=== PATIENT | female | born 1955 | race Asian ===

== ENCOUNTER 2019-03-08 08:08 | Day surgery (SDC) | payer OTHER ==
[2019-03-08] VITALS (10 sets, daily range): BP systolic 87–124; BP diastolic 45–70
[~2019-03-08] VITALS: Ht 154.9 cm; Wt 60.8 kg
[~2019-03-08 08:08] MED LIST: ProvayBlue 5mg/ml 10ml amp INJ ONE; cefOXitin Sod 1 GM in D5W 55 ML IVPB ONE
[2019-03-08] MEDS ORDERED: METFORMIN HCL1000 M1 ORAL (09:17)
[2019-03-08] MEDS ORDERED: BENAZEPRIL HCL20 MG ORAL (09:17)
[2019-03-08] MEDS ORDERED: LOVASTATIN40 MG ORAL (09:17)
[2019-03-08] MEDS ORDERED: METOPROLOL TART50 MG ORAL (09:17)
[2019-03-08] MEDS ORDERED: AMLODIPINE BESYL5 MG ORAL (09:17)
[2019-03-08] MEDS ORDERED: ASPIR 8181 MG ORAL (09:17)
[2019-03-08] MEDS ORDERED: GLIPIZIDE5 MG ORAL (09:17)
[2019-03-08] MEDS ORDERED: Midazolam 2mg/2ml Inj ONE (09:26)
[2019-03-08] MEDS ORDERED: fentaNYL 100 mcg/2 mL ONE (09:26)
[2019-03-08] MEDS ORDERED: Lidocaine 1% MPF 10mg/ml 5ml ONE (09:30)
[2019-03-08] MEDS ORDERED: Propofol 200mg/20ml IV ONE (09:30)
[2019-03-08] MEDS ORDERED: cefOXitin 1gm Inj ONE (10:00)
[2019-03-08] MEDS ORDERED: Ropivacaine 5mg/ml Vial 30ml INJ ONE (10:00)
--- NOTE | 2019-03-08 10:14 | Pre-Procedure Note/Attestation ---
Pre-Procedure Note/Attestation Complete Prior to Procedure Planned Procedure: not applicable Procedure Narrative: D&C, Hysteroscopy Indications for Procedure Pre-Operative Diagnosis: Uterine prolapse, vaginal bleeding Attestation I attest that I discussed the nature of the procedure; its benefits; risks and complications; and alternatives (and the risks and benefits of such alternatives ), prior to the procedure, with the patient (or the patient's legal sales representative printing paper). I attest that, if there was a reasonable possibility of needing a blood transfusion, the patient (or the patient's legal sales representative printing paper) was given the [facility] standardized written summary, pursuant to the Francesco [place] Blood Safety Act ([place] Health and Safety Code # 1645, as amended). I attest that I re-evaluated the patient just prior to the surgery and that there has been no change in the patient's H&P, except as documented below:NONE Josh Sam MD Mar 08, 2019 10:14
[2019-03-08] MEDS ORDERED: Sterile Water Irrig 1000ml IRRIG ONE (10:30)
[2019-03-08] MEDS ORDERED: LR 1000ml ONE (10:30)
[2019-03-08] MEDS ORDERED: LR 1000ml 1,000 ML IVLG SCH (11:08)
[2019-03-08] MEDS ORDERED: Ketorolac 30mg Inj ONE (11:08)
--- NOTE | 2019-03-08 11:08 | Anethesia Preoperative Eval ---
Anesthesia Pre-op PMH/ROS General Date of Evaluation: Mar 08, 2019 Time of Evaluation: 10:18 Anesthesiologist: Becki ASA Score: ASA 3 Mallampati Score Class I : Soft palate, uvula, fauces, pillars visible Class II: Soft palate, uvula, fauces visible Class III: Soft palate, base of uvula visible Class IV: Only hard plate visible Mallampati Classification: Class II Surgeon: Cecy Diagnosis: Uterine prolaps Surgical Procedure: D&C Hysteroscopy Anesthesia History: none Family History: no anesthesia problems Allergies: Coded Allergies: No Known Allergies (Unverified , 03/07/19) Patient NPO?: Yes Past Medical History Cardiovascular: Reports: HTN - stable on pills; Denies: CAD, [place], valve dz, arrhythmia, other Pulmonary: Denies: asthma, COPD, SHERIN, other Gastrointestinal/Genitourinary: Reports: GERD - mild; Denies: CRI, ESRD, other Neurologic/Psychiatric: Reports: depression/anxiety; Denies: dementia, CVA, TIA, other Endocrine: Reports: DM - on pills pooly controlled; Denies: hypothyroidism, steroids, other HEENT: Denies: cataract (L), cataract (R), glaucoma, [place] (L), [place] (R), other Hematology/Immune: Denies: anemia, DVT, bleeding disorder, other Musculoskeletal/Integumentary: Denies: OA, RA, DJD, DDD, edema, other PMH Narrative: as above PSxH Narrative: none Anesthesia Pre-op Phys. Exam Physician Exam Last Vital Signs Date Time Temp Pulse Resp B/P (MAP) Pulse Ox O2 Delivery O2 Flow Rate FiO2 03/08/19 08:50 Room Air 03/08/19 08:50 96.8 50 20 117/65 100 Constitutional: NAD Neurologic: CN 2-12 intact Cardiovascular: RRR, no M/R/G Respiratory: CTA Gastrointestinal: S/NT/ND Airway Exam Mallampati Score: Class II MO: full Neck: flexible ROM: full Teeth: missing Dentures: no upper, no lower Anesthesia Pre-op A/P Labs see chart Studies Pre-op Studies: EKG - NSR Risk Assessment & Plan Assessment: ASA 3 Plan: GA with LMA Status Change Before Surgery: No Pre-Antibiotics Drug: Cefoxetin 1gr. Given Within 1 Hr of Incision: Yes Time Given: 10:50 Narayan Connell MD Mar 08, 2019 11:08
[2019-03-08] MEDS ORDERED: Hydromorphone 0.5mg/0.5ml inj IVP PRN (11:15)
[2019-03-08] MEDS ORDERED: D5 1/2NS 1,000 ML IV SCH (11:30)
[2019-03-08] MEDS ORDERED: HYDROcodone/Acetamin 5/325 tab ORAL PRN (11:30)
[2019-03-08] MEDS ORDERED: Tylenol #3 tab (300mg/30mg) ORAL PRN (11:30)
[2019-03-08] MEDS ORDERED: HYDROmorphone 1mg/ml Carpuject SUBQ PRN (11:30)
--- NOTE | 2019-03-08 11:32 | Brief Operative Note ---
Immediate Post Operative Note Operative Note Pre-op Diagnosis: Uterine prolapse, vaginal bleeding Procedure: Video hysteroscopy, ECC, EMC Post-op Diagnosis: Same Post-op Diagnosis: same as pre-op Findings: consistent w/pre-op dx studies Surgeon: Josh Sam MD Anesthesiologist: Harinder Connell MD Anesthesia: general Specimen: yes - ECC, EMC Complications: none Condition: stable Fluids: LR Estimated Blood Loss: none Drains: none Implant(s) used?: No Josh Sam MD Mar 08, 2019 11:32
--- NOTE | 2019-03-08 11:34 | Immediate Post-Op Evaluation ---
Immediate Post-Op Evalulation Immediate Post-Op Evalulation Procedure: D&C Hysteroscopy Date of Evaluation: Mar 08, 2019 Time of Evaluation: 11:33 IV Fluids: 1000 Blood Products: none Estimated Blood Loss: min Urinary Output: 200 Blood Pressure Systolic: 104 Blood Pressure Diastolic: 56 Pulse Rate: 48 Respiratory Rate: 20 O2 Sat by Pulse Oximetry: 99 Temperature (Fahrenheit): 97.6 Pain Score (1-10): 1 Nausea: No Vomiting: No Complications none Patient Status: reacts, patent, none Hydration Status: adequate Narayan Connell MD Mar 08, 2019 11:34
--- NOTE | 2019-03-08 16:30 | Operative Note - Dictated ---
DATE OF OPERATION: 03/08/2019 PREOPERATIVE DIAGNOSES: Menorrhagia and pelvic prolapse. POSTOPERATIVE DIAGNOSES: Menorrhagia and pelvic prolapse. PROCEDURES PERFORMED: Video hysteroscopy, dilatation and curettage, endocervical curettage, and endometrial curettage. SURGEON: Josh Sam M.D. COOKEE: No investment sales assistant. ANESTHESIA: General. ANESTHESIOLOGIST: Narayan Connell M.D. PROCEDURE IN DETAIL: After all the appropriate consents were signed, the patient was brought to the operating room and placed on the table in supine position. General anesthesia was induced without complication. The patient was then placed in a dorsal lithotomy position. Perineum, vagina, and abdomen were prepped and draped in the usual fashion for the procedure. The patient was then examined under anesthesia. Uterus appeared to be severely prolapsing with both cystocele and enterocele visible. The cervix was now grasped and dilated using Hegar dilators to Hegar #7. The procedure then continued with video hysteroscope where uterine cavity was well visualized. Both tubal ostia could be identified and there did not appear to be any submucosal fibroids or polypoid lesions. The endometrium appeared to be quite dry. At this time, endocervical curettage was performed followed by endometrial curettage. Both specimens submitted to pathology for evaluation. At this time, instruments were removed from the vagina and the cervical os was once again visualized and found to be hemostatic. The patient was placed in the supine position, awakened from general anesthesia, and brought to the recovery room in excellent condition. Josh Sam M.D. DR: EV JOB#: [id number] CC:
[2019-03-12 09:01] VITALS: BP 128/72
--- NOTE | 2019-03-12 09:01 | 48 Hour Post Anesthesia Eval ---
Post Anesthesia Evaluation Procedure: D&C Hysteroscopy Date of Evaluation: Mar 08, 2019 Time of Evaluation: 12:30 Blood Pressure Systolic: 128 0: 72 Pulse Rate: 68 Respiratory Rate: 20 Temperature (Fahrenheit): 97.6 O2 Sat by Pulse Oximetry: 98 Airway: patent Nausea: No Vomiting: No Pain Intensity: 1 Hydration Status: adequate Cardiopulmonary Status: stable Mental Status/LOC: patient returned to baseline Follow-up Care/Observations: n/a Post-Anesthesia Complications: none Follow-up care needed: ready to discharge Narayan Connell MD Mar 12, 2019 09:01
== END 2019-03-08 13:40 | disposition home or self-care (01) ==
LOC: SUR 08:08
DX: N92.0 Excessive and frequent menstruation with regular cycle (principal); N81.89 Other female genital prolapse; I10 Essential (primary) hypertension; K21.9 Gastro-esophageal reflux disease without esophagitis; F32.9 Major depressive disorder, single episode, unspecified; F41.9 Anxiety disorder, unspecified; E11.9 Type 2 diabetes mellitus without complications
CPT/HCPCS: 58558; 82962; J0694; J1885; J2250; J2704; J3010; 94003; 94150

== ENCOUNTER 2019-05-08 05:42 | Inpatient (IN) | payer OTHER ==
--- NOTE | 2019-05-01 13:32 | NUR ---
*-* CASE MANAGEMENT NOTES *-* Please review information for upcoming case Hortencia Rodriguez DOS 05/08/19 CERT # [id number] 1DAY LOS CPT [id number] Laparoscopy, surgical, with vaginal hysterectomy MADONNA VIDAL NO PHONE # FX# [phone] PER BABATUNDE Robledo [phone] PACHECO'S OFFICE OBTAINING AUTH FOR VAGINAL SLING PROCEDURE. WILL UPDATE ONCE APPROVED
[~2019-05-08] VITALS: Ht 154.9 cm; Wt 61.2 kg
[~2019-05-08 05:42] MED LIST changes: +AMLODIPINE BESYL5 MG ORAL; +ASPIR 8181 MG ORAL; +BENAZEPRIL HCL20 MG ORAL; +GLIPIZIDE5 MG ORAL; +LOVASTATIN40 MG ORAL; +METFORMIN HCL1000 M1 ORAL; +METOPROLOL TART50 MG ORAL; -ProvayBlue 5mg/ml 10ml amp INJ ONE; -cefOXitin Sod 1 GM in D5W 55 ML IVPB ONE
[2019-05-08 06:39] VITALS: BP 118/78
[2019-05-08] MEDS ORDERED: LR 1000ml 1,000 ML IVLG SCH (06:50)
--- NOTE | 2019-05-08 06:55 | Anethesia Preoperative Eval ---
Anesthesia Pre-op PMH/ROS General Date of Evaluation: May 08, 2019 Anesthesiologist: Aaliyah ASA Score: ASA 3 Mallampati Score Class I : Soft palate, uvula, fauces, pillars visible Class II: Soft palate, uvula, fauces visible Class III: Soft palate, base of uvula visible Class IV: Only hard plate visible Mallampati Classification: Class II Surgeon: Cecy Diagnosis: Uterine Prolapse Surgical Procedure: Vaginal Hysterectomy Anesthesia History: none Family History: no anesthesia problems Allergies: Coded Allergies: No Known Allergies (Unverified , 03/07/19) Medications: see eMAR Patient NPO?: Yes NPO Date: May 07, 2019 NPO Time: 2340 Past Medical History Cardiovascular: Reports: HTN, other - HL Endocrine: Reports: DM Anesthesia Pre-op Phys. Exam Physician Exam Last Vital Signs Date Time Temp Pulse Resp B/P (MAP) Pulse Ox O2 Delivery O2 Flow Rate FiO2 05/08/19 06:49 Room Air 05/08/19 06:39 96.7 54 18 118/78 (91) 99 Constitutional: NAD Neurologic: CN 2-12 intact Cardiovascular: RRR Respiratory: CTA Gastrointestinal: S/NT/ND Airway Exam Mallampati Score: Class II MO: full ROM: limited Teeth: missing Dentures: upper, lower Anesthesia Pre-op A/P Risk Assessment & Plan Assessment: ASA 3 Plan: GA, SED, GlideScope Go Status Change Before Surgery: No Pre-Antibiotics Dru Grams Ancef IV Given Within 1 Hr of Incision: Yes Isai Fischer MD May 08, 2019 06:55
[2019-05-08] MEDS ORDERED: LORazepam Inj 2mg/ml 1ml IV PRN (07:00)
[2019-05-08] MEDS ORDERED: DiphenhydrAMINE 50mg/ml Inj IVP PRN (07:00)
[2019-05-08] MEDS ORDERED: Hydromorphone 0.5mg/0.5ml inj IVP PRN (07:00)
[2019-05-08] MEDS ORDERED: Ketorolac 30mg Inj IV PRN ×2 (07:00)
[2019-05-08] MEDS ORDERED: Metoclopramide 10mg/2ml Inj IVP PRN (07:00)
[2019-05-08] MEDS ORDERED: fentaNYL 100 mcg/2 mL IV PRN (07:00)
[2019-05-08] MEDS ORDERED: oxyCODONE HCL/Acetaminophen 5/325mg ORAL PRN (07:00)
[2019-05-08] MEDS ORDERED: cefOXitin Sod 2 GM in D5W 110 ML IVPB ONE (07:00)
[2019-05-08] MEDS ORDERED: Labetalol 5mg/ml 20ml vial IV PRN (07:00)
[2019-05-08] MEDS ORDERED: HYDROcodone/Acetamin 5/325 tab ORAL PRN (07:00)
[2019-05-08] MEDS ORDERED: Meperidine 50mg/ml Inj(FOR RIGORS ONLY) IVP PRN (07:00)
[2019-05-08] MEDS ORDERED: Atropine Sulfate 0.4mg/ml inj IVP PRN (07:00)
[2019-05-08] MEDS ORDERED: HYDROcodone/Acetamin 7.5/325 tab ORAL PRN (07:00)
[2019-05-08] MEDS ORDERED: Acetaminophen (Non formulary) 100 ML IV ONE (07:00)
[2019-05-08] MEDS ORDERED: Midazolam 2mg/2ml Inj IVP PRN (07:00)
[2019-05-08] MEDS ORDERED: Lidocaine 1% Plain 30 ml INJ ONE (07:01)
[2019-05-08] MEDS ORDERED: Sodium Chloride 10ml vial INJ ONE (07:01)
[2019-05-08] MEDS ORDERED: Lidocaine 1% MPF 10mg/ml 5ml ONE (07:01)
[2019-05-08] MEDS ORDERED: fentaNYL 100 mcg/2 mL IV ONE (07:01)
[2019-05-08] MEDS ORDERED: Ketamine 500mg/10ml vial ONE (07:02)
[2019-05-08] MEDS ORDERED: Rocuronium Bromide 50mg/5ml Inj IV ONE (07:11)
[2019-05-08] MEDS ORDERED: Ropivacaine 5mg/ml Vial 30ml INJ ONE (07:27)
[2019-05-08] MEDS ORDERED: ProvayBlue 5mg/ml 10ml amp INJ ONE (07:30)
[2019-05-17] MEDS ORDERED: cefOXitin Sod 2 GM in D5W 110 ML IVPB ONE (07:00)
[2019-07-03] VITALS (21 sets, daily range): BP systolic 84–109; BP diastolic 39–63
[2019-07-03] MEDS ORDERED: cefOXitin Sod 2 GM in D5W 110 ML IVPB ONE (07:00)
[2019-07-03] MEDS ORDERED: Midazolam 2mg/2ml Inj ONE (07:06)
[2019-07-03] MEDS ORDERED: fentaNYL 100 mcg/2 mL IV ONE (07:06)
[2019-07-03] MEDS ORDERED: Propofol 200mg/20ml IV ONE (07:08)
[2019-07-03] MEDS ORDERED: Lidocaine 1% MPF 10mg/ml 5ml ONE (07:08)
[2019-07-03] MEDS ORDERED: Rocuronium Bromide 50mg/5ml Inj IV ONE (07:15)
[2019-07-03] MEDS ORDERED: cefOXitin 1gm Inj ONE (07:15)
[2019-07-03] MEDS ORDERED: Succinylcholine 20mg/ml 10ml vial ONE (07:15)
[2019-07-03] MEDS ORDERED: Ropivacaine 5mg/ml Vial 20ml INJ ONE (07:16)
[2019-07-03] MEDS ORDERED: Bacitracin 50000 Units Vial ONE (07:17)
[2019-07-03] MEDS ORDERED: NeoSporin Gu Irrig 1ml Amp IRRIG ONE (07:17)
[2019-07-03] MEDS ORDERED: LR 1000ml ONE (07:30)
[2019-07-03] MEDS ORDERED: Sterile Water Irrig 2000ml IRRIG ONE ×2 (07:30→11:13)
[2019-07-03] MEDS ORDERED: ProvayBlue 5mg/ml 10ml amp INJ ONE (07:30)
[2019-07-03] MEDS ORDERED: Neostigmine 1mg/ml 10ml Inj ONE ×2 (07:30→09:07)
[2019-07-03] MEDS ORDERED: NS Irrig 1000ml ONE (07:30)
[2019-07-03] MEDS ORDERED: Sterile Water Irrig 1000ml IRRIG ONE (07:30)
--- NOTE | 2019-07-03 07:37 | Pre-Procedure Note/Attestation ---
Pre-Procedure Note/Attestation Complete Prior to Procedure Planned Procedure: bilateral Procedure Narrative: Laparoscopically assisted hysterectomy, bilateral salpingo-oophorectomy Indications for Procedure Pre-Operative Diagnosis: Pelvic Prolapse Attestation I attest that I discussed the nature of the procedure; its benefits; risks and complications; and alternatives (and the risks and benefits of such alternatives ), prior to the procedure, with the patient (or the patient's legal safety representative). I attest that, if there was a reasonable possibility of needing a blood transfusion, the patient (or the patient's legal safety representative) was given the [facility] Services standardized written summary, pursuant to the Francesco Driscoll Blood Safety Act ([place] Health and Safety Code # 1645, as amended). I attest that I re-evaluated the patient just prior to the surgery and that there has been no change in the patient's H&P, except as documented below: Josh Sam MD Jul 03, 2019 07:37
--- NOTE | 2019-07-03 07:44 | Anethesia Preoperative Eval ---
Anesthesia Pre-op PMH/ROS General Date of Evaluation: Jul 03, 2019 Time of Evaluation: 07:42 Anesthesiologist: Becki ASA Score: ASA 2 Mallampati Score Class I : Soft palate, uvula, fauces, pillars visible Class II: Soft palate, uvula, fauces visible Class III: Soft palate, base of uvula visible Class IV: Only hard plate visible Mallampati Classification: Class II Surgeon: Cecy Diagnosis: Pelvic prolaps Surgical Procedure: Vaginal hysterectomy Anesthesia History: none Family History: no anesthesia problems Allergies: Coded Allergies: No Known Allergies (Unverified , 03/07/19) Medications: see eMAR Patient NPO?: Yes NPO Date: Jul 03, 2019 NPO Time: 2300 Past Medical History Cardiovascular: Reports: HTN - stable on meds; Denies: CAD, [place], valve dz, arrhythmia, other Pulmonary: Denies: asthma, COPD, SHERIN, other Gastrointestinal/Genitourinary: Reports: GERD; Denies: CRI, ESRD, other Neurologic/Psychiatric: Reports: depression/anxiety; Denies: dementia, CVA, TIA, other Endocrine: Reports: DM - on pills; Denies: hypothyroidism, steroids, other HEENT: Denies: cataract (L), cataract (R), glaucoma, [place] (L), [place] (R), other Hematology/Immune: Denies: anemia, DVT, bleeding disorder, other Musculoskeletal/Integumentary: Denies: OA, RA, DJD, DDD, edema, other PMH Narrative: as above PSxH Narrative: None Anesthesia Pre-op Phys. Exam Physician Exam Last Vital Signs Date Time Temp Pulse Resp B/P (MAP) Pulse Ox O2 Delivery O2 Flow Rate FiO2 07/03/19 06:40 Room Air 07/03/19 06:36 97.2 56 18 105/63 (77) 99 Constitutional: NAD Neurologic: CN 2-12 intact Cardiovascular: RRR, no M/R/G Respiratory: CTA Gastrointestinal: S/NT/ND Airway Exam Mallampati Score: Class II MO: full Neck: flexible Teeth: missing Dentures: upper, lower Narayan Connell MD Jul 03, 2019 07:44
--- NOTE | 2019-07-03 07:44 | Pre-Procedure Note/Attestation ---
Pre-Procedure Note/Attestation Complete Prior to Procedure Planned Procedure: not applicable Procedure Narrative: cystocele repair vaginal sling rectocele repair colposuspension cystoscopy Indications for Procedure Pre-Operative Diagnosis: vaginal prolapse Attestation I attest that I discussed the nature of the procedure; its benefits; risks and complications; and alternatives (and the risks and benefits of such alternatives ), prior to the procedure, with the patient (or the patient's legal administrative representative). I attest that, if there was a reasonable possibility of needing a blood transfusion, the patient (or the patient's legal administrative representative) was given the [facility] standardized written summary, pursuant to the Francesco [place] Blood Safety Act ([place] Health and Safety Code # 1645, as amended). I attest that I re-evaluated the patient just prior to the surgery and that there has been no change in the patient's H&P, except as documented below: Jean Hsu MD Jul 03, 2019 07:44
[2019-07-03] MEDS ORDERED: Sodium Chloride 10ml vial INJ ONE ×2 (08:25→09:07)
[2019-07-03] MEDS ORDERED: ePHEDrine 50mg/ml Inj ONE (08:25)
[2019-07-03] MEDS ORDERED: LR 1000ml 1,000 ML IVLG SCH (08:47)
[2019-07-03] MEDS ORDERED: Hydromorphone 0.5mg/0.5ml inj IVP PRN ×2 (09:00→12:45)
[2019-07-03] MEDS ORDERED: Acetaminophen (Non formulary) 100 ML IV ONE (09:00)
[2019-07-03] MEDS ORDERED: Ketorolac 30mg Inj IV PRN (09:00)
[2019-07-03] MEDS ORDERED: DiphenhydrAMINE 50mg/ml Inj IVP PRN (09:00)
[2019-07-03] MEDS ORDERED: Metoclopramide 10mg/2ml Inj IVP PRN (09:00)
[2019-07-03] MEDS ORDERED: Glycopyrrolate 0.2mg/ml 1ml Vial ONE (09:07)
[2019-07-03] MEDS ORDERED: Morphine Sulfate 10mg/ml Inj ONE (09:07)
[2019-07-03] MEDS ORDERED: Ketorolac 30mg Inj ONE (09:08)
[2019-07-03] MEDS ORDERED: NS Irrig 1000ml IRRIG ONE (09:31)
--- NOTE | 2019-07-03 09:54 | Brief Operative Note ---
Immediate Post Operative Note Operative Note Pre-op Diagnosis: vaginal prolapse Procedure: cystocele and rectocele repair colposuspesion vaginal sling cystoscopy Post-op Diagnosis: same Post-op Diagnosis: same as pre-op Surgeon: Devin Hsu Anesthesia: general Specimen: none Complications: none Condition: stable Fluids: 1000 Estimated Blood Loss: minimal Drains: none Implant(s) used?: No Jean Hsu MD Jul 03, 2019 09:54
[2019-07-03] MEDS ORDERED: Lidocaine 1% 10mg/ml/EPI 0.01mg/ml 50ml INJ ONE (10:29)
--- NOTE | 2019-07-03 10:52 | Brief Operative Note ---
Immediate Post Operative Note Operative Note Pre-op Diagnosis: Pelvic Prolapse Procedure: Laparoscopically Assisted Hysterectomy, Bilateral Salpingo-oophorectomy, lysis of pelvic adhesions, enterolysis Post-op Diagnosis: same as pre-op Findings: consistent w/pre-op dx studies Surgeon: Josh Sam Bullet Maker: Melanie Long Anesthesiologist: Mary Connell Anesthesia: general Specimen: yes - Uterus, Cervix, Bilateral Ovaries and tubes Complications: none Condition: stable Fluids: LR @100 ml/hr Estimated Blood Loss: minimal Drains: none Packing: NONE Implant(s) used?: No Josh Sam MD Jul 03, 2019 10:52
[2019-07-03] MEDS ORDERED: ProvayBlue 5mg/ml 10ml amp IVP ONE (11:01)
--- NOTE | 2019-07-03 11:55 | Immediate Post-Op Evaluation ---
Immediate Post-Op Evalulation Immediate Post-Op Evalulation Procedure: Lap assysted vaginal hysterectomy, recto and cystocele repair Date of Evaluation: Jul 03, 2019 Time of Evaluation: 11:54 IV Fluids: 1700 Blood Products: none Estimated Blood Loss: 150 Urinary Output: 250 Blood Pressure Systolic: 104 Blood Pressure Diastolic: 56 Pulse Rate: 72 Respiratory Rate: 20 O2 Sat by Pulse Oximetry: 99 Temperature (Fahrenheit): 97.8 Pain Score (1-10): 1 Nausea: No Vomiting: No Complications none Patient Status: reacts, patent, extubated, none Hydration Status: adequate Narayan Connell MD Jul 03, 2019 11:55
[2019-07-03] MEDS ORDERED: Insulin Human Regular 100units/ml 3ml ONE (12:31)
[2019-07-03] MEDS ORDERED: Insulin Human Regular 100units/ml 3ml SUBQ SCH (12:35)
--- NOTE | 2019-07-03 14:21 | NUR ---
CASE MANAGEMENT:REVIEW 64 YR OLD FEMALE HERE FOR ELECTIVE SURGERY SI: VAGINAL PROLAPSE 96.7 54 18 118/78 99% ON RA IS: TO SURGERY: CYSTOCELE & RECTOCELE REPAIR : TO MED/SURG [facility]
[2019-07-03 14:31] LABS: HEMATOCRIT 31.4 % (37.0-47.0); HEMOGLOBIN 10.5 G/DL (12.0-16.0); MEAN CORPUSCULAR VOLUME 80 FL (80-99); PLATELET COUNT 312 K/UL (150-450); RED BLOOD COUNT 3.91 M/UL (4.20-5.40); RED CELL DISTRIBUTION WIDTH 11.7 % (11.6-14.8); WHITE BLOOD COUNT 14.8 K/UL (4.8-10.8)
--- NOTE | 2019-07-03 15:55 | NUR ---
NURSE NOTES: pt admitted in stable condition. pt is bleeding normal checked vaginal pad. surgical site is intact. Pt on director of analytics no signs of cardiac or respiratory distress at this time. will continue to monitor V/s. B/P is currently 107/58 it is improving HR 62 and reports no pain. Bed in lowest position and locked. Call light within reach instructed pt on how to use it.
--- NOTE | 2019-07-03 16:12 | NUR ---
NURSE NOTES: Called md Sam for admitting orders, got report from OR nurse, gave pt to nurse Karena
[2019-07-03] MEDS: NovoLOG Insulin Flexpen SUBQ SCH ×2 (17:15→21:00)
--- NOTE | 2019-07-03 17:36 | General Progress Note ---
Assessment/Plan Assessment/Plan: Laparoscopically Assisted Hysterectomy, Bilateral Salpingo-oophorectomy, lysis of pelvic adhesions, enterolysis diabetes hypertension PLAN 1. incentive spirometry 2. SCD 3. resume home meds 4. Hydration 5. Pain management 6. discharge once stable with outpatient follow up Subjective Allergies: Coded Allergies: No Known Allergies (Unverified , 03/07/19) Subjective asked to follow post op Objective Last 24 Hour Vital Signs Date Time Temp Pulse Resp B/P (MAP) Pulse Ox O2 Delivery O2 Flow Rate FiO2 07/03/19 15:25 98.4 60 16 96/47 99 Nasal Cannula 3 07/03/19 15:10 61 15 90/45 99 Nasal Cannula 3 07/03/19 14:55 61 15 87/44 100 Nasal Cannula 3 07/03/19 14:40 60 15 88/42 100 Nasal Cannula 3 07/03/19 14:25 60 22 92/43 99 Nasal Cannula 3 07/03/19 14:10 60 15 92/50 100 Nasal Cannula 3 07/03/19 13:55 98.4 61 20 84/39 100 Nasal Cannula 3 07/03/19 13:40 60 14 91/45 100 Nasal Cannula 3 07/03/19 13:30 62 15 90/44 100 Nasal Cannula 3 07/03/19 13:20 61 15 92/43 100 Nasal Cannula 3 07/03/19 13:05 61 16 92/44 99 Nasal Cannula 3 07/03/19 12:50 60 15 93/50 99 Nasal Cannula 3 07/03/19 12:40 57 17 100/50 99 Nasal Cannula 3 07/03/19 12:30 60 20 105/49 99 Nasal Cannula 3 07/03/19 12:15 64 16 109/51 100 Simple Mask 6 07/03/19 12:05 63 19 103/49 100 Simple Mask 6 07/03/19 11:55 67 17 105/55 100 Simple Mask 6 07/03/19 11:55 72 20 99 07/03/19 11:50 73 18 95/53 100 Simple Mask 6 07/03/19 11:47 97.8 76 24 100/47 100 Simple Mask 6 07/03/19 06:40 Room Air 07/03/19 06:36 97.2 56 18 105/63 (77) 99 Intake and Output 07/02/19 07/03/19 19:00 07:00 # Voids 1 Laboratory Tests 07/03/19 14:15: White Blood Count 14.8H, Red Blood Count 3.91L, Hemoglobin 10.5L, Hematocrit 31.4L, Mean Corpuscular Volume 80, Mean Corpuscular Hemoglobin 26.7L, Mean Corpuscular Hemoglobin Concent 33.3, Red Cell Distribution Width 11.7, Platelet Count 312, Mean Platelet Volume 5.9L, Neutrophils (%) (Auto) , Lymphocytes (%) ( Auto) , Monocytes (%) (Auto) , Eosinophils (%) (Auto) , Basophils (%) (Auto) , Differential Total Cells Counted 100, Neutrophils % (Manual) 89H, Lymphocytes % (Manual) 8L, Monocytes % (Manual) 3, Eosinophils % (Manual) 0, Basophils % ( Manual) 0, Band Neutrophils 0, Platelet Estimate Adequate, Platelet Morphology Normal, Hypochromasia 1+ Height (Feet): 5 Height (Inches): 1.00 Weight (Pounds): 135 Objective WDWN NAD clear breath sounds bilaterally without rhonchi or wheeze [id number] without MRG NABS nontender no HSM no CCE nonfocal Jeff Sam MD Jul 03, 2019 17:36
[2019-07-03] MEDS: LR 1000ml 1,000 ML IV SCH (18:54)
--- NOTE | 2019-07-03 20:55 | NUR ---
HAND-OFF: Report given to Pastor/RN, pt in stable condition. Endorsed to RN that pad needs to be removed in the morning but follow is to stay until doctor's orders to DC.
--- NOTE | 2019-07-03 20:56 | NUR ---
NURSE NOTES: Got report from Karena NUNO. Pt in stable condition. Denies any pain. No s/s of distress or discomfort noted. Pt resting in bed comfortably. Bed in low and locked position, call light within reach, bedside table within reach. Continue to monitor.
[2019-07-03] MEDS: Metoprolol Tartrate 50mg tab ORAL SCH (21:00)
[2019-07-03] MEDS: ceFAZolin 1gm/50ml Premix 50 ML IV SCH (22:20)
[2019-07-04] VITALS: BP 99/55
[2019-07-04] MEDS: LR 1000ml 1,000 ML IV SCH ×3 (02:43→23:04)
[2019-07-04 04:00] VITALS: BP 126/74
[2019-07-04] MEDS ORDERED: Ketorolac 30mg Inj IM PRN ×2 (06:00→12:36)
--- NOTE | 2019-07-04 06:00 | NUR ---
NURSE NOTES: Vaginal packing removed. Pt in stable condition. Continue to monitor.
[2019-07-04] MEDS: ceFAZolin 1gm/50ml Premix 50 ML IV SCH ×3 (06:12→21:49)
[2019-07-04] MEDS: GlipiZIDE 5mg tab ORAL SCH ×2 (06:12→11:38)
[2019-07-04] MEDS: NovoLOG Insulin Flexpen SUBQ SCH ×4 (06:25→21:00)
--- NOTE | 2019-07-04 07:45 | NUR ---
HAND-OFF: Report given to Aleksandar NUNO.
--- NOTE | 2019-07-04 07:50 | NUR ---
NURSE NOTES: Received report from YAAKOV Xavier. Patient sleeping in supine position, resting comfortably, oxygen at 2 liters nasal cannula, no signs or symptoms of pain, bed in lowest position, call light within reach, in no apparent distress.
[2019-07-04 08:00] VITALS: BP 106/55
[2019-07-04] MEDS ORDERED: Aspirin EC 81mg tab ORAL SCH (09:00)
[2019-07-04] MEDS: Metoprolol Tartrate 50mg tab ORAL SCH ×2 (09:00→21:49)
[2019-07-04 11:30] LABS: ANION GAP 8 mmol/L (5-15); BLOOD UREA NITROGEN 6 mg/dL (7-18); CALCIUM 8.1 MG/DL (8.5-10.1); CARBON DIOXIDE 26 MMOL/L (21-32); CHLORIDE 107 MMOL/L (98-107); CREATININE 0.7 MG/DL (0.55-1.30); POTASSIUM 3.8 MMOL/L (3.5-5.1); SODIUM 141 MMOL/L (136-145)
[2019-07-04 12:00] VITALS: BP 127/75
[2019-07-04] MEDS ORDERED: Hydromorphone 0.5mg/0.5ml inj IVP PRN (12:35)
--- NOTE | 2019-07-04 12:41 | NUR ---
TRANSFER TO FLOOR: Patient transferred to [facility], per MD. Report given to YAAKOV Whatley. Belongings and medications given to YAAKOV Rea. Family and or S/O informed of transfer by patient.
--- NOTE | 2019-07-04 13:49 | NUR ---
CASE MANAGEMENT:REVIEW 07/04/19 SI: POD #1 S/P CYSTOCELE & RECTOCELE REPAIR 98.1 75 18 127/75 96% ON RA IS: IV ANCEF Q8HRS IV LR @ 100/HR NORVASC PO QD ASA PO QD GLIPIZIDE PO BID LOPRESSOR PO Q12 TORADOL IM Q6HRS PRN : MED/SURG [facility]
--- NOTE | 2019-07-04 14:06 | 48 Hour Post Anesthesia Eval ---
Post Anesthesia Evaluation Procedure: Lap assysted vaginal hysterectomy, recto and cystocele repair Date of Evaluation: Jul 04, 2019 Time of Evaluation: 14:05 Blood Pressure Systolic: 124 0: 72 Pulse Rate: 68 Respiratory Rate: 58 Temperature (Fahrenheit): 97.6 O2 Sat by Pulse Oximetry: 98 Airway: patent Nausea: No Vomiting: No Pain Intensity: 1 Hydration Status: adequate Cardiopulmonary Status: stable Mental Status/LOC: patient returned to baseline Follow-up Care/Observations: n/a Post-Anesthesia Complications: none Follow-up care needed: N/A Narayan Connell MD Jul 04, 2019 14:06
[2019-07-04 16:00] VITALS: BP 122/62
--- NOTE | 2019-07-04 16:16 | General Progress Note ---
Assessment/Plan Assessment/Plan: Laparoscopically Assisted Hysterectomy, Bilateral Salpingo-oophorectomy, lysis of pelvic adhesions, enterolysis diabetes hypertension PLAN 1. incentive spirometry 2. SCD 3. maintain home meds 4. Hydration 5. Pain management 6. discharge once stable with outpatient follow up Subjective Allergies: Coded Allergies: No Known Allergies (Unverified , 03/07/19) Subjective sable post op care noted Objective Last 24 Hour Vital Signs Date Time Temp Pulse Resp B/P (MAP) Pulse Ox O2 Delivery O2 Flow Rate FiO2 07/04/19 14:06 68 58 98 07/04/19 12:00 98.1 75 18 127/75 (92) 96 07/04/19 09:00 65 106/55 07/04/19 09:00 65 106/55 07/04/19 09:00 Room Air 07/04/19 08:00 61 07/04/19 08:00 98.1 65 18 106/55 (72) 98 07/04/19 07:06 98.2 07/04/19 04:00 98.2 66 16 126/74 (91) 97 07/04/19 04:00 2.0 07/04/19 04:00 58 07/04/19 01:09 Nasal Cannula 2.0 07/04/19 01:00 Nasal Cannula 2.0 07/04/19 00:00 98.6 60 16 99/55 (70) 98 07/04/19 00:00 55 07/03/19 21:00 61 96/54 07/03/19 21:00 Nasal Cannula 2.0 07/03/19 20:00 52 07/03/19 20:00 2.0 07/03/19 20:00 98.1 61 16 96/54 (68) 96 07/03/19 19:56 Nasal Cannula 2.0 Intake and Output 07/03/19 07/04/19 19:00 07:00 Intake Total 3700 ml 50 ml Output Total 520 ml Balance 3180 ml 50 ml Intake IV Total 3700 ml 50 ml Output Urine Total 370 ml Estimated Blood Loss 150 ml # Voids 1 Laboratory Tests 07/04/19 10:30: Sodium Level 141, Potassium Level 3.8, Chloride Level 107, Carbon Dioxide Level 26, Anion Gap 8, Blood Urea Nitrogen 6L, Creatinine 0.7, Estimat Glomerular Filtration Rate > 60, Glucose Level 191H, Calcium Level 8.1L Height (Feet): 5 Height (Inches): 1.00 Weight (Pounds): 135 Objective WDWN NAD clear breath sounds bilaterally without rhonchi or wheeze [id number] without MRG NABS nontender no HSM no CCE nonfocal Jeff Sam MD Jul 04, 2019 16:16
[2019-07-04] MEDS ORDERED: metFORMIN 500mg tab ORAL SCH (18:00)
[2019-07-04] MEDS: metFORMIN 500mg tab ORAL SCH (18:16)
[2019-07-04 20:00] VITALS: BP 115/63
--- NOTE | 2019-07-04 20:00 | NUR ---
NURSE NOTES: Patient AOx4. Son at bedside. No complaints of pain at this time. No s/s distress noted. Three abdominal surgical sites noted, dry and intact. Andrade in place, draining yellow urine by gravity. Bed in lowest position, call light within reach, will continue to monitor.
[2019-07-05 00:57] VITALS: BP 127/62
[2019-07-05 04:22] VITALS: BP 135/65
[2019-07-05] MEDS: GlipiZIDE 5mg tab ORAL SCH ×2 (06:07→11:35)
[2019-07-05] MEDS: ceFAZolin 1gm/50ml Premix 50 ML IV SCH ×2 (06:07→14:14)
[2019-07-05] MEDS: NovoLOG Insulin Flexpen SUBQ SCH ×3 (06:15→16:30)
--- NOTE | 2019-07-05 07:13 | NUR ---
HAND-OFF: Report given to NOAH WARD RN.
--- NOTE | 2019-07-05 07:30 | NUR ---
NURSE NOTES: Received report from Marah NUNO. Patient is awake and oriented, no acute distress noted, reporting no pain at this time, surgical site clean and dry. Andrade to gravity drainage. IVF running per order. Patient updated on plan of care for the day. Side rails upx2, bed low and locked, call light within reach.
[2019-07-05 08:00] VITALS: BP 125/63
--- NOTE | 2019-07-05 08:32 | General Progress Note ---
Assessment/Plan Assessment/Plan: Laparoscopically Assisted Hysterectomy, Bilateral Salpingo-oophorectomy, lysis of pelvic adhesions, enterolysis diabetes hypertension post op fevers PLAN 1. incentive spirometry 2. SCD 3. maintain home meds 4. Hydration 5. Pain management 6. discharge per material assembler impression, plan, and exam edited and reviewed in detail care discussed with RN Subjective Allergies: Coded Allergies: No Known Allergies (Unverified , 03/07/19) Subjective sable post op care noted low grade fevers Objective Last 24 Hour Vital Signs Date Time Temp Pulse Resp B/P (MAP) Pulse Ox O2 Delivery O2 Flow Rate FiO2 07/05/19 04:23 97.3 07/05/19 04:22 62 18 135/65 (88) 97 07/05/19 01:09 100.3 07/05/19 00:57 67 18 127/62 (83) 98 07/04/19 22:19 Room Air 07/04/19 21:49 74 115/63 07/04/19 20:00 99.1 74 18 115/63 (80) 97 07/04/19 16:00 99.9 67 18 122/62 (82) 94 07/04/19 14:06 68 58 98 07/04/19 12:00 98.1 75 18 127/75 (92) 96 07/04/19 09:00 65 106/55 07/04/19 09:00 65 106/55 07/04/19 09:00 Room Air Intake and Output 07/04/19 07/05/19 19:00 07:00 Intake Total 1150 ml 1210 ml Output Total 2150 ml 2000 ml Balance -1000 ml -790 ml Intake Oral 300 ml 360 ml IV Total 850 ml 850 ml Output Urine Total 2150 ml 2000 ml Laboratory Tests 07/04/19 10:30: Sodium Level 141, Potassium Level 3.8, Chloride Level 107, Carbon Dioxide Level 26, Anion Gap 8, Blood Urea Nitrogen 6L, Creatinine 0.7, Estimat Glomerular Filtration Rate > 60, Glucose Level 191H, Calcium Level 8.1L Height (Feet): 5 Height (Inches): 1.00 Weight (Pounds): 135 Objective WDWN NAD clear breath sounds bilaterally without rhonchi or wheeze [id number] without MRG NABS nontender no HSM no CCE nonfocal Jeff Sam MD Jul 05, 2019 08:32
[2019-07-05] MEDS: LR 1000ml 1,000 ML IV SCH ×2 (08:42→18:48)
[2019-07-05] MEDS ORDERED: Aspirin EC 81mg tab ORAL SCH (09:00)
[2019-07-05] MEDS: metFORMIN 500mg tab ORAL SCH ×2 (09:20→18:49)
[2019-07-05] MEDS: Metoprolol Tartrate 50mg tab ORAL SCH (09:20)
--- NOTE | 2019-07-05 09:54 | NUR ---
NURSE NOTES: Spoke with Dr. Sam regarding benavides in place, per ilda HERNANDEZ to keep benavides in and to follow up with Dr. Sam regarding removal.
--- NOTE | 2019-07-05 10:56 | NUR ---
NURSE NOTES: Called Dr. Sam to clarify whether MD wants benavides and remaining vaginal packing removed. Saw order from Dr. Hsu from 07/03/19 to remove vag packing at 6AM, called Dr. Sam to clarify order before removing remaining packing, noted some packing still coming out of vaginal opening, noted nursing note from 07/04/19 that reported vaginal packing was removed, still small amount of packing present. Left message with MD's veterinary receptionist, awaiting callback.
--- NOTE | 2019-07-05 11:08 | NUR ---
NURSE NOTES: Received call from Dr. Sam. ordered to keep vaginal packing and benavides in place until he comes in to see the patient.
[2019-07-05 12:00] VITALS: BP 131/68
--- NOTE | 2019-07-05 12:15 | NUR ---
NURSE NOTES: Vaginal packing removed by Dr. Sam.
--- NOTE | 2019-07-05 13:56 | NUR ---
NURSE NOTES: Received call from Dr. Sam. gave orders, orders read back and entered. Will carry out.
--- NOTE | 2019-07-05 14:27 | NUR ---
NURSE NOTES: Andrade catheter removed per MD order, patient tolerated well. Patient educated to inform RN when she needs to void.
--- NOTE | 2019-07-05 15:47 | NUR ---
CASE MANAGEMENT:REVIEW 07/05/19 SI: POD #2 S/P CYSTOCELE & RECTOCELE REPAIR 98.4 60 16 131/68 97% ON RA WBC 14.8 H/H 10.5/31.4 CA+ 8.1 BG 191 IS: IV ANCEF Q8HRS IV LR @ 100/HR NORVASC PO QD ASA PO QD GLIPIZIDE PO BID LOPRESSOR PO Q12 TORADOL IM Q6HRS PRN METFORMIN PO BID : MED/SURG 3 EAST PLAN: START POST VOID RESIDUAL CONT IS DC PLANNING
[2019-07-05 16:00] VITALS: BP 123/80
--- NOTE | 2019-07-05 16:48 | NUR ---
NURSE NOTES: Reviewed home medications with Dr. Cecy MD ordered to resume all home medications except ASA which MD ordered to instruct patient to resume on 07/09/2019. Orders entered.
--- NOTE | 2019-07-05 17:13 | NUR ---
NURSE NOTES: Patient voided four times since benavides catheter removal, total of 400mL of blood tinged urine, checked post void residual. Bladder scan showed 398mL in bladder. Called Dr. Sam and informed MD of PVR, stated he will follow up with Dr. Hsu and call back with further orders.
--- NOTE | 2019-07-05 18:00 | NUR ---
NURSE NOTES: Received call from Dr. Sam. Orders received, read back and entered.
--- NOTE | 2019-07-05 18:54 | NUR ---
NURSE NOTES: 16Fr benavides catheter inserted to gravity drainage, draining clear, yellow urine, patient tolerated insertion well. Will endorse discharge to shift mechanic nurse.
--- NOTE | 2019-07-05 19:07 | NUR ---
NURSE NOTES: Patient provided with benavides leg bags and large night time bags.
--- NOTE | 2019-07-05 19:36 | NUR ---
HAND-OFF: Report given to Anabell NUNO. Endorsed to discharge patient and provide discharge teaching.
--- NOTE | 2019-07-05 19:37 | NUR ---
NURSE NOTES: Received report from Jelena NUNO. Pt is a/o x 4. Son at bedside. Andrade cath in draining to gravity. IV is patent and intact. No c/o pain or distress at this time. Bed is lowest position. Will continue to monitor.
--- NOTE | 2019-07-05 20:25 | NUR ---
NURSE NOTES: Provided discharge education and follow up appointment. Belonging checked with patient and signed by patient. IV removed and given dressing. patient in benavides cath, given education regarding benavides cath care, how to change bag, and clean. patient down on W/C assisting RN and Son. safely discharged with son.
--- NOTE | 2019-07-05 22:30 | Operative Note - Dictated ---
DATE OF OPERATION: 07/03/2019 PREOPERATIVE DIAGNOSIS: Complete vaginal prolapse. POSTOPERATIVE DIAGNOSIS: Complete vaginal prolapse. PROCEDURES: 1. Transvaginal cystocele repair. 2. Rectocele repair. 3. Colposuspension. 4. Vaginal wall sling. 5. Cystoscopy. OPERATED BY: Jean Hsu M.D. ANESTHESIA: General. FINDINGS: Include a large anterior and posterior vagina. INDICATION FOR SURGERY: The patient had a complete vaginal prolapse with uterine anterior and posterior wall prolapses. Urodynamics confirmed as well as integrity of the bladder. Treatment options were explained to her in great length including all potential complications. She signed the consent. PROCEDURE IN DETAIL: She was brought to the operating room, placed in lithotomy position. Dr. Sam completed laparoscopically assisted hysterectomy. After that, bladder was from the vaginal wall using sharp and blunt dissection to expose the retrovesical space. Using Capio device, sutures were placed in the sacral spinal muscles on both sides of the bladder. Vaginal mucosa was treated, sutures were placed through the body of the vaginal wall and suspension was performed with excellent vaginal elevation. Rectocele was also repaired in the standard fashion. Vaginal wall sling was placed in the . Wound was copiously irrigated. Cystoscopy showed no evidence of bladder perforation, ejection easily coming from both ureteral orifices. Estimated blood loss was approximately 50 mL. The vagina was closed with running 0 Vicryl suture and the vaginal packing was placed. Sponge count and instrument count were correct. The patient was transferred to the recovery room in stable condition. No evidence of complications. Jean Hsu M.D. DR: MY JOB#: [id number] CC:
--- NOTE | 2019-07-07 09:38 | Discharge Summary ---
Discharge Summary Discharge Summary _ DATE OF ADMISSION: 07/03/2019 DATE OF DISCHARGE: 07/05/2019 SURGEON: Dr. Josh Hsu BRIEF HOSPITAL COURSE: Patient is a 64-year-old female, with vaginal prolapse who was admitted and underwent laparoscopic hysterectomy, bilateral salpingo-oophorectomy, enterolysis with lysis of adhesions by Dr. Sam. Surgery was done by Dr. Hsu who performed transvaginal cystocele repair, rectocele repair, colposuspension, vaginal wall sling and cystoscopy. She tolerated procedure well. Surgery was uneventful. Post-operatively, patient was admitted for post- op care. She was placed on SCDs for DVT prophylaxis and was encouraged use of incentive spirometer. She was resumed on antihypertensives. Blood glucose was monitored. She was given metformin and Glucophage. Patient was given pain management. She had low-grade fever. She eventually defervesced. Diet was advanced. Vaginal packing was removed. Patient was ambulating well with good pain control and was tolerating diet. Patient was eventually cleared for discharge home. She was discharged with a Andrade catheter connected to a leg bag. Andrade care instructed. Patient to follow-up on 07/08/[address] Hsu 's office. To resume aspirin on 07/09/19. PREOPERATIVE DIAGNOSIS: Complete vaginal prolapse. POSTOPERATIVE DIAGNOSIS: Complete vaginal prolapse. PROCEDURES: 1. Transvaginal cystocele repair. 2. Rectocele repair. 3. Colposuspension. 4. Vaginal wall sling. 5. Cystoscopy. 6. Laparoscopically Assisted Hysterectomy, Bilateral Salpingo-oophorectomy, lysis of pelvic adhesions, enterolysis (Refer to Operative Report) DISCHARGE DISPOSITION: Patient was discharged home. DISCHARGE MEDICATIONS: Refer to Medication Reconciliation Sheet. DISCHARGE INSTRUCTIONS: Post-op instructions given. Follow-up in a week. I have been assigned to complete a DC summary on this account, I was not involved with the patient's management.--IMELDA Lancaster Jacqueline Robles NP Jul 07, 2019 09:38
--- NOTE | 2019-07-08 08:51 | NUR ---
*-* INSURANCE *-* ALL CLINICALS AND REVIEWS HAVE BEEN FAXED TO: [facility] PHONE # QU# [phone] PER BABATUNDE Robledo [phone]
--- NOTE | 2019-07-09 11:19 | NUR ---
*-* INSURANCE *-* ALL CLINICALS HAVE BEEN REFAXED TO; [facility] F: [phone]
== END 2019-07-05 20:30 | disposition home or self-care (01) | DRG 743 ==
LOC: UNDOADMIN 05:50 → SDSOVERFLO 05:50 → 2E 07-03 15:50 → 3E 07-04 12:30
PROC: 0UT7FZZ Resection of Bilateral Fallopian Tubes, Via Natural or Artificial Opening With Percutaneous Endoscopic Assistance (ICD-10-PCS; principal; 2019-07-03 07:30)
PROC: 0UT9FZZ Resection of Uterus, Via Natural or Artificial Opening With Percutaneous Endoscopic Assistance (ICD-10-PCS; principal; 2019-07-03 07:30)
PROC: 0JQC3ZZ Repair Pelvic Region Subcutaneous Tissue and Fascia, Percutaneous Approach (ICD-10-PCS; principal; 2019-07-03 07:30)
PROC: 0USG8ZZ Reposition Vagina, Via Natural or Artificial Opening Endoscopic (ICD-10-PCS; principal; 2019-07-03 07:30)
PROC: 0TSD4ZZ Reposition Urethra, Percutaneous Endoscopic Approach (ICD-10-PCS; principal; 2019-07-03 07:30)
PROC: 0UT2FZZ Resection of Bilateral Ovaries, Via Natural or Artificial Opening With Percutaneous Endoscopic Assistance (ICD-10-PCS; principal; 2019-07-03 07:30)
PROC: 0UQ Female Reproductive System, Repair (ICD-10-PCS; principal; 2019-07-03 07:30)
DX: N81.3 Complete uterovaginal prolapse (principal); E78.00 Pure hypercholesterolemia, unspecified; Z79.84 Long term (current) use of oral hypoglycemic drugs; Z79.82 Long term (current) use of aspirin; E11.9 Type 2 diabetes mellitus without complications; R50.9 Fever, unspecified
CPT/HCPCS: 36415; 80048; 82962; 85007; 85025; 86850; 86900; 86901; 87081; 94003; 94150; J1815; J2250; J2405; J2710; J2795